=== PATIENT | male | born 1960 | race Caucasian/White ===

== ENCOUNTER 2018-01-31 15:29 | Emergency (ER) | payer MEDICARE ==
[~2018-01-31] VITALS: Ht 165.1 cm; Wt 104.3 kg
[~2018-01-31 15:29] MED LIST: LISINOPRIL20 MG; ZOCOR10 MG
== END 2018-01-31 17:21 | disposition home or self-care (01) ==
LOC: ED 15:29
DX: S49.91XA Unspecified injury of right shoulder and upper arm, initial encounter (principal); V86.59XA Driver of other special all-terrain or other off-road motor vehicle injured in nontraffic accident, initial encounter; Y93.I9 Activity, other involving external motion; Y92.89 Other specified places as the place of occurrence of the external cause; Y99.8 Other external cause status